=== PATIENT | male | born 1960 | race Caucasian/White ===

== ENCOUNTER 2019-07-15 14:57 | Inpatient (IN) | payer MEDICAID ==
[~2019-07-15] VITALS: Ht 188 cm; Wt 120.4 kg
--- NOTE | 2019-07-15 15:19 | NUR ---
ALYSSIA ANCE: [phone]
[2019-07-15 15:35] LABS: BASOPHILS % (AUTO) 0.3 % (0-1); EOSINOPHILS # (AUTO) 0.1 X10'3 (0-0.9); EOSINOPHILS % (AUTO) 0.7 % (0-6); HEMATOCRIT 43.4 % (42.0-52.0); HEMOGLOBIN 14.5 g/dl (14.0-17.9); LYMPHOCYTES # (AUTO) 2.4 X10'3 (1.1-4.8); MEAN CORPUSCULAR HEMOGLOBIN 30.9 PG (27.0-31.0); MEAN CORPUSCULAR HGB CONC 33.3 g/dL (33.0-36.5); MEAN CORPUSCULAR VOLUME 92.6 FL (78-98); MEAN PLATELET VOLUME 7.9 FL (7.4-10.4); MONOCYTES # (AUTO) 0.6 X10'3 (0-0.9); MONOCYTES % (AUTO) 5.3 % (2-12); NEUTROPHILS # (AUTO) 8.8 X10'3 (1.8-7.7); NEUTROPHILS % (AUTO) 73.7 % (42-75); PLATELET COUNT 117 X10'3 (140-440); RED BLOOD COUNT 4.68 X10'6 (4.70-6.10); RED CELL DISTRIBUTION WIDTH 15.3 % (11.5-14.5); WHITE BLOOD COUNT 11.9 X10'3 (4.5-11.0)
[2019-07-15] MEDS ORDERED: ASPI-611 PO (15:35)
[2019-07-15] MEDS ORDERED: heparin 10,000 units/1 ML INJ IV ONE ×2 (15:35→15:40)
[2019-07-15] MEDS ORDERED: heparin 10,000 units/1 ML INJ IV PRN (15:35)
[2019-07-15] MEDS ORDERED: PRAV20TA4 PO (15:35)
[2019-07-15 15:50] LABS: ALANINE AMINOTRANSFERASE 33 U/L (12-78); ALBUMIN 3.3 G/DL (3.4-5.0); ALBUMIN/GLOBULIN RATIO 0.9 (1.1-1.5); ALKALINE PHOSPHATASE 64 IU/L (46-116); ANION GAP 9 (8-16); ASPARTATE AMINO TRANSFERASE 19 U/L (10-37); BILIRUBIN,TOTAL 0.7 MG/DL (0.1-1.0); BLOOD UREA NITROGEN 23 MG/DL (7-18); BUN/CREATININE RATIO 21.3 (5.4-32.0); CALCIUM 8.7 MG/DL (8.5-10.1); CHLORIDE 104 MMOL/L (99-107); CREATININE 1.08 MG/DL (0.60-1.10); GLUCOSE 142 MG/DL (70-104); SODIUM 136 MMOL/L (135-145); eGFR 70 ML/MIN
[2019-07-15] MEDS: heparin 25,000 UNIT/250ml bag 250 ML IV SCH (15:56)
[2019-07-15] MEDS ORDERED: morphine 2 MG/ML inj. syringe IV PRN ×2 (16:30)
[2019-07-15] MEDS ORDERED: mag hydrox/Alum hydrox/simeth 30ml oral suspension PO PRN (16:30)
[2019-07-15] MEDS ORDERED: magnesium 4gm in 100ml NS 100 ML IV PRN (16:30)
[2019-07-15] MEDS ORDERED: diphenhydrAMINE 50 mg/ml inj IV PRN (16:30)
[2019-07-15] MEDS ORDERED: ondansetron/PF 4mg/2ml inj IV PRN (16:30)
[2019-07-15] MEDS ORDERED: acetaminophen 650mg rectal suppository RC PRN (16:30)
[2019-07-15] MEDS ORDERED: HYDROcodone/acetaminophen 10/325mg tab PO PRN (16:30)
[2019-07-15] MEDS ORDERED: bisacodyl 10mg suppository rectal RC PRN (16:30)
[2019-07-15] MEDS ORDERED: acetaminophen 325mg tablet PO PRN ×2 (16:30)
[2019-07-15] MEDS ORDERED: potassium Cl 20 mEq SR tablet PO PRN ×2 (16:30)
[2019-07-15] MEDS ORDERED: magnesium 2GM in 50ml NS 50 ML IV PRN (16:30)
[2019-07-15] MEDS ORDERED: HYDROcodone/acetaminophen 5mg/325mg tablet PO PRN (16:30)
[2019-07-15] MEDS ORDERED: magnesium Cl slow-release 64mg tablet PO PRN (16:30)
[2019-07-15] MEDS ORDERED: potassium CL 10mEq/100ml bag 100 ML IV PRN ×2 (16:30)
[2019-07-15] MEDS ORDERED: magnesium hydroxide 30ml (MOM) UD suspension PO PRN (16:30)
[2019-07-15] MEDS ORDERED: diphenhydrAMINE 25mg capsule PO PRN (16:30)
[2019-07-15 16:44] LABS: PARTIAL THROMBOPLASTIN TIME 28 SECONDS (22-32)
--- NOTE | 2019-07-15 17:22 | NUR ---
Report called into [facility] Goldstein on tele. Patient to go to room 3026 A.
--- NOTE | 2019-07-15 17:30 | NUR ---
Patient transferred from ED at 1630, patient oriented to unit, tele started, mrsa swab complete, scd's, UA collected, IS at bedside,2 RN skin check complete. VS 97.9 degrees, HR 78, RR 16, O2 95% RA, BP 145/90
[2019-07-15] MEDS: normal saline 1000ml 1,000 ML IV SCH (17:46)
[2019-07-15 17:49] VITALS: BP 149/90
--- NOTE | 2019-07-15 18:00 | NUR ---
Patient arrived to unit 1730 patients VS stable, resting comfortably, in no distress at this time. Addendum: 07/15/19 at 1802 by Triston Paulson RN Heparin gtt running @ 20ml/hr, NS @100
[2019-07-15 18:22] LABS: CLARITY,URINE SLIGHTLY CLOUDY (Clear); COLOR,URINE YELLOW (Yellow); GLUCOSE, URINE NEGATIVE (Neg); KETONES,URINE NEGATIVE (Neg); LEUKOCYTE ESTERASE ,URINE NEGATIVE (Neg); NITRITES, URINE NEGATIVE (Neg); OCCULT BLOOD,URINE TRACE-LYSED (Neg); PH,URINE 5.5 (4.8-8.0); PROTEIN,URINE NEGATIVE (Neg); UA COLLECTION TYPE CLN CATCH MIDSTREAM
--- NOTE | 2019-07-15 18:27 | NUR ---
Problems reprioritized. Patient report given, questions answered & plan of care reviewed with Dru ARSHAD.
--- NOTE | 2019-07-15 18:28 | NUR ---
Patient in room PCU 3029R. I have received report from PAVITHRA CERON and had the opportunity to ask questions and assume patient care. DR. HOGUE IN ROOM AT BEDSIDE FOR PATIENT REPORT. DISCUSSED PLAN OF CARE WITH PATIENT WITH POSSIBLE DISCHARGE BACK TO [place], [place] TOMORROW, 07/16/19. PATIENT AWAKE FOR BEDSIDE REPORT, ON ROOM AIR AND STABLE AT THIS TIME.
[2019-07-15 18:39] LABS: BACTERIA,URINE NONE SEEN /HPF (Neg); WBC,URINE NONE SEEN /HPF (0-4)
[2019-07-15 18:40] LABS: SQUAMOUS EPITHELIAL CELL,UR FEW /LPF (FEW)
[2019-07-15] MEDS: K and/or MAG REPLACEMENT MC SCH (20:00)
[2019-07-15 22:00] VITALS: BP_SYST 131; BP_SYST 139; BP_DIAS 85; BP_DIAS 90
[2019-07-15] MEDS ORDERED: glucagon, human recombinant 1mg kit SUBCUT PRN (22:45)
[2019-07-15] MEDS ORDERED: dextrose ORAL solution 15 GM/59 ML bottle PO PRN ×2 (22:45)
[2019-07-15] MEDS ORDERED: insulin Lispro (HumaLOG) vial - multi-dose SQ SCH (22:45)
[2019-07-15] MEDS ORDERED: dextrose 50%-water 50ml dispensing syringe IV PRN ×2 (22:45)
[2019-07-15] MEDS ORDERED: MESSAGE TO PHARMACY PO ONE (22:45)
--- NOTE | 2019-07-15 23:48 | NUR ---
LATE TROPONIN AND LATE PTT DUE TO HARD STICK
[2019-07-16] MEDS: metoprolol succinate 25mg (24-HOUR) SR. Tablet PO SCH ×2 (00:38→07:49)
[2019-07-16] MEDS: lisinopril 20mg tablet PO SCH ×2 (00:38→07:49)
--- NOTE | 2019-07-16 01:40 | NUR ---
PAGER ID: [phone] MESSAGE: [phone]. [id number], PAVITHRA REED. PATIENT IN 3026A ADMITTED FOR DVT OF LLE CRITICAL PTT OF GREATER THAN 139. DRIP WAS OFF FOR A BITSO WE COULD DRAW TROPONINS AND HEPARIN AND WAS EXTREMELY HARD STICK. OFF RIGHT NOW PER PROTOCOL
[2019-07-16] MEDS: normal saline 1000ml 1,000 ML IV SCH (02:37)
[2019-07-16] MEDS: heparin 25,000 UNIT/250ml bag 250 ML IV SCH ×2 (04:04→08:42)
[2019-07-16 05:30] LABS: ALANINE AMINOTRANSFERASE 33 U/L (12-78); ALBUMIN 2.9 G/DL (3.4-5.0); ALBUMIN/GLOBULIN RATIO 0.9 (1.1-1.5); ALKALINE PHOSPHATASE 56 IU/L (46-116); ANION GAP 10 (8-16); ASPARTATE AMINO TRANSFERASE 19 U/L (10-37); BILIRUBIN,TOTAL 0.7 MG/DL (0.1-1.0); BLOOD UREA NITROGEN 20 MG/DL (7-18); BUN/CREATININE RATIO 21.7 (5.4-32.0); CALCIUM 8.5 MG/DL (8.5-10.1); CHLORIDE 105 MMOL/L (99-107); CREATININE 0.92 MG/DL (0.60-1.10); GLUCOSE 153 MG/DL (70-104); POTASSIUM 4.1 MMOL/L (3.5-5.1); SODIUM 138 MMOL/L (135-145); TOTAL CARBON DIOXIDE 23.5 MMOL/L (24-32); TOTAL PROTEIN 6.2 G/DL (6.4-8.2); eGFR 84 ML/MIN
[2019-07-16 05:42] LABS: CHOL/HDL RATIO 2.4 (0.00-4.99); CHOLESTEROL 169 MG/DL (0-200); HDL CHOLESTEROL 71 MG/DL (35-60); LDL CHOLESTEROL 75 MG/DL (50-100); MAGNESIUM 2.1 MG/DL (1.5-2.4); PHOSPHORUS 4.1 MG/DL (2.3-4.5); TRIGLYCERIDES 108 MG/DL (20-135)
[2019-07-16 06:00] VITALS: BP 103/62
--- NOTE | 2019-07-16 06:44 | NUR ---
Patient in room PCU 3026. I have received report from Dru ARSHAD and had the opportunity to ask questions and assume patient care.
--- NOTE | 2019-07-16 06:52 | NUR ---
Problems reprioritized. Patient report given, questions answered & plan of care reviewed with PAVITHRA CERON.
[2019-07-16] MEDS: K and/or MAG REPLACEMENT MC SCH (08:00)
[2019-07-16] MEDS ORDERED: aspirin 81mg tablet.DR PO SCH (08:00)
[2019-07-16] MEDS ORDERED: pravastatin 40mg tablet PO SCH (08:00)
--- NOTE | 2019-07-16 08:48 | NUR ---
Heparin Rate change was done at 0800 not 0845. Heparin was held for PTT 91 for 1 hr, rate was decreased from 17 ml/hr to 15 ml/hr. PTT scheduled 1400
[2019-07-16 09:55] LABS: BASOPHILS % (AUTO) 0.1 % (0-1); EOSINOPHILS # (AUTO) 0.1 X10'3 (0-0.9); EOSINOPHILS % (AUTO) 1.1 % (0-6); HEMATOCRIT 41.9 % (42.0-52.0); HEMOGLOBIN 13.9 g/dl (14.0-17.9); LYMPHOCYTES # (AUTO) 1.7 X10'3 (1.1-4.8); LYMPHOCYTES % (AUTO) 20.8 % (21-51); MEAN CORPUSCULAR HEMOGLOBIN 31.1 PG (27.0-31.0); MEAN CORPUSCULAR HGB CONC 33.3 g/dL (33.0-36.5); MEAN CORPUSCULAR VOLUME 93.6 FL (78-98); MEAN PLATELET VOLUME 7.8 FL (7.4-10.4); MONOCYTES # (AUTO) 0.5 X10'3 (0-0.9); MONOCYTES % (AUTO) 6.2 % (2-12); NEUTROPHILS # (AUTO) 5.9 X10'3 (1.8-7.7); NEUTROPHILS % (AUTO) 71.8 % (42-75); PLATELET COUNT 106 X10'3 (140-440); RED BLOOD COUNT 4.48 X10'6 (4.70-6.10); RED CELL DISTRIBUTION WIDTH 15.5 % (11.5-14.5); WHITE BLOOD COUNT 8.2 X10'3 (4.5-11.0)
[2019-07-16] MEDS ORDERED: METO-395 PO (10:24)
[2019-07-16] MEDS ORDERED: APIX5TAB3 PO (10:24)
[2019-07-16] MEDS ORDERED: LISI-600 PO (10:24)
[2019-07-16 10:55] LABS: PLATELET ESTIMATE NORMAL; TOTAL CELLS COUNTED 100
[2019-07-16 11:00] VITALS: BP 134/72
[2019-07-16 11:08] VITALS: BP 103/62
--- NOTE | 2019-07-16 13:08 | NUR ---
Patient safe for discharge per MD orders, discharge instructions reviewed and questions answered, prescriptions called into [facility] in [place], PIV, Tele, and Heparin gtt DC, wheeled to lobby, picked up by in personal vehicle.
--- NOTE | 2019-07-16 13:43 | NUR ---
Pt with A1c 8.0%, newly T2DM dx this visit. Pt discharged prior to RD being available for bedside visit. Written DM education, new T2DM dx educational booklet from [employer], and RD contact information mailed to patient's home address found in EMR. Pt also provided with diabetes survival skills handout from RN. Will remain available. Addendum: 07/16/19 at [address] Amended: Links added.
[2019-07-16] MEDS ORDERED: insulin glargine (Lantus) pen - multi-dose SQ SCH (21:00)
== END 2019-07-16 13:08 | disposition home or self-care (01) | DRG 197 ==
LOC: ER 14:58 → ED HOLD 16:30 → PCU 3S 17:27
PROVIDERS: ADMIT Family Medicine; ATTEND Family Medicine
DX: I82.402 Acute embolism and thrombosis of unspecified deep veins of left lower extremity (principal); I26.99 Other pulmonary embolism without acute cor pulmonale; E11.9 Type 2 diabetes mellitus without complications; E66.9 Obesity, unspecified; E78.00 Pure hypercholesterolemia, unspecified; E78.5 Hyperlipidemia, unspecified; I10 Essential (primary) hypertension; Z79.899 Other long term (current) drug therapy; Z68.34 Body mass index [BMI] 34.0-34.9, adult
CPT/HCPCS: 36415; 80053; 80061; 81001; 82948; 83036; 83735; 84100; 84443; 84484; 85025; 85730; 87081; 93005; 93306; G0378; J1644; J1815; J7030